=== PATIENT | male | born 1955 | race Caucasian/White ===

== ENCOUNTER → 2016-09-12 | Outpatient (CLI) | payer OTHER ==
[~2016-09-12] MED LIST: ASPIR 8181 MG PO; COREG6.25 MG PO; LIPITOR80 MG PO; NICODERM/HABITR21 MG TRANS; PRILOSEC20 MG PO; TYLENOL325 MG PO; VASOTEC5 M1 PO; WELLBUTRIN XL300 MG PO
[2016-09-12 16:44] LABS: ALBUMIN 3.6 gm/dL (3.5-5.0); ANION GAP 9.8 (10.0-19.0); CALCIUM 8.4 mg/dL (8.5-10.5); CREATININE 1.1 mg/dL (0.6-1.3); POTASSIUM 3.8 mMol/L (3.7-5.1)
== END | disposition disaster alternative care site (69) ==
LOC: LNHI 16:26
PROVIDERS: Internal Medicine Interventional Cardiology
DX: I42.9 Cardiomyopathy, unspecified (principal); I10 Essential (primary) hypertension